=== PATIENT | male | born 1960 ===

== ENCOUNTER 2017-05-21 00:12 | Emergency (ER) | payer MEDICAID ==
[2017-05-21 00:29] VITALS: BMI 29.5
--- NOTE | 2017-05-21 03:05 | ED PDOC ---
HPI: Psych/Substance Abuse Time Seen by Provider: 05/21/17 00:25 Chief Complaint (Nursing): Alcohol Ingestion Chief Complaint (Provider): Alcohol Ingestion ED Caveat: Intoxicated History Per: Patient History/Exam Limitations: intoxication Current Symptoms Are (Timing): Still Present Suicide/Self Injury Attempted (Context): None Modifying Factor(s): Alcohol Additional Complaint(s): 56 year old male presents to ED due to alcohol intoxication and has a past history of alcohol abuse. Patient was found by EMS to be publicly intoxicated in the streets. Walks with an unsteady gait and is sleeping in his room upon provider entrance. PCP: Emiliano Stuart Past Medical History Reviewed: Historical Data, Nursing Documentation, Vital Signs Vital Signs: Last Vital Signs Temp 98.6 F 05/21/17 00:29 Pulse 85 05/21/17 00:29 Resp 16 05/21/17 00:29 BP 144/81 05/21/17 00:29 Pulse Ox 98 05/21/17 00:29 - Medical History PMH: Atrial Fibrillation, Hepatitis, HTN, Pancreatitis, Seizures (BRAIN INURY) Denies: Chronic Kidney Disease, Sexually Transmitted Disease - Surgical History Surgical History: No Surg Hx - Family History Family History: States: Unknown Family Hx - Social History Alcohol: > 2 Drinks/Day - Immunization History Hx Tetanus Toxoid Vaccination: No Hx Influenza Vaccination: No Hx Pneumococcal Vaccination: No - Home Medications Home Medications: Ambulatory Orders Medication Instructions Recorded levETIRAcetam [Keppra] 500 mg PO BID 04/10/16 Multimineral/Multivitamin 1 tab PO DAILY #30 tab 01/01/17 [Therapeutic-M Tab] Phenytoin, Extended [Dilantin 100 mg PO TID #90 cer 01/01/17 Kapseals] - Allergies Allergies/Adverse Reactions: Allergies Allergy/AdvReac Type Severity Reaction Status Date / Time No Known Allergies Allergy Verified 05/21/17 00:29 Review of Systems Review Of Systems: ROS cannot be obtained secondary to pt's inabilty to answer questions. (due to intoxicated state) Physical Exam - Reviewed Nursing Documentation Reviewed: Yes Vital Signs Reviewed: Yes - Physical Exam Appears: Positive for: Non-toxic Skin: Positive for: Normal Color, Warm, Dry Eye Exam: Positive for: Normal appearance Respiratory: Positive for: Normal Breath Sounds. Negative for: Respiratory Distress Gastrointestinal/Abdominal: Positive for: Soft. Negative for: Tenderness Neurologic/Psych: Negative for: Alert (sleeping), Oriented, Motor/Sensory Deficits - Laboratory Results Result Diagrams: 05/21/17 05:11 05/21/17 05:11 - ECG O2 Sat by Pulse Oximetry: 98 (RA) Pulse Ox Interpretation: Normal Medical Decision Making Medical Decision Makin Initial impression: alcohol intoxication Initial plan: * EtOH serum * Labs * UDrug screen * Accucheck 0347 Patient will undergo chemical sedation due to increased agitation and lack of cooperation with ED staff. 0700 Patient will be signed out to Dr. Frankel pending sobriety and crisis eval. Scribe Attestation: Documented by Monika Currie acting as a scribe for Sandoval Rob MD. Scribe Attestation: All medical record entries made by the Scribe were at my direction and personally dictated by me. I have reviewed the chart and agree that the record accurately reflects my personal performance of the history, physical exam, medical decision making, and the department course for this patient. I have also personally directed, reviewed, and agree with the discharge instructions and disposition. Disposition - Clinical Impression Clinical Impression: Alcohol abuse, Alcohol intoxication - Patient ED Disposition Is Patient to be Admitted: Transfer of Care - Disposition Disposition: Transfer of Care Disposition Time: 07:00 Condition: FAIR Patient Signed Over To: Daniella Frankel Handoff Comments: pending sobriety and crisis evaluation
[2017-05-21 05:14] LABS: BASO # 0.1 K/uL (0.0-0.2); BASO % 1.5 % (0.0-2.0); EOS # 0.1 K/uL (0.0-0.7); EOS % 2.5 % (0.0-4.0); HEMATOCRIT 38.9 % (35.0-51.0); LYMPH # 2.3 K/uL (1.0-4.3); LYMPH % 43.8 % (20.0-40.0); MEAN CELL VOLUME 96.2 fl (80.0-94.0); MEAN CORPUSCULAR HEMOGLOBIN 31.5 pg (27.0-31.0); MEAN CORPUSCULAR HGB CONC 32.7 g/dL (33.0-37.0); MEAN PLATELET VOLUME 7.3 fl (7.2-11.7); MONO # 0.3 K/uL (0.0-0.8); MONO % 4.8 % (0.0-10.0); NEUT # 2.5 K/uL (1.8-7.0); NEUT % 47.4 % (50.0-75.0); NRBC % 0.1 % (0.0-0.0); RED CELL DISTRIBUTION WIDTH 17.6 % (11.5-14.5); WHITE BLOOD COUNT 5.3 K/uL (4.8-10.8)
[2017-05-21 05:41] LABS: ALB/GLOB RATIO 1.1 (1.0-2.1); ALCOHOL SERUM 316 mg/dl (0-10); ALKALINE PHOSPHATASE 56 U/L (38-126); ALT/SGPT 44 U/L (21-72); AST/SGOT 36 U/L (17-59); BILIRUBIN,TOTAL 0.2 mg/dl (0.2-1.3); BLOOD UREA NITROGEN 7 mg/dl (9-20); CALCIUM 8.4 mg/dL (8.4-10.2); CARBON DIOXIDE 26 mmol/L (22-30); CHLORIDE 114 mmol/L (98-107); GFR AFRICAN-AMERICAN > 60; GLUCOSE,RANDOM 94 mg/dL (75-110); POTASSIUM 4.1 MMOL/L (3.6-5.0); SODIUM 151 mmol/l (132-148); TOTAL PROTEIN 7.1 G/DL (6.3-8.2)
--- NOTE | 2017-05-21 07:48 | ED PDOC ---
- Laboratory Results Result Diagrams: 05/21/17 05:11 05/21/17 05:11 - ECG O2 Sat by Pulse Oximetry: 99 Medical Decision Making Medical Decision Making: Time: 07:00 --Patient signed out to me by Dr. Rob pending sobriety and crisis evaluation Time: 10:37 Clinial Impression: Alcohol intoxication --Patient is AAO x3, has a steady gait, and requires no further treatment in the ED at this time. Counseling was provided and all questions were answered regarding diagnosis and need for followup with PMD. There is agreement to discharge plan. Return if symptoms persist or worsen. Scribe Attestation: Documented by Dallas Stanford acting as a scribe for Daniella Frankel MD. Scribe Attestation: All medical record entries made by the Scribe were at my direction and personally dictated by me. I have reviewed the chart and agree that the record accurately reflects my personal performance of the history, physical exam, medical decision making, and the department course for this patient. I have also personally directed, reviewed, and agree with the discharge instructions and disposition. Disposition - Clinical Impression Clinical Impression: Alcohol abuse, Alcohol intoxication - POA Present On Arrival: None - Disposition Referrals: Emiliano Stuart MD [Primary Care Provider] - Disposition: Routine/Home Disposition Time: 10:37 Condition: STABLE Instructions: Alcohol Intoxication (ED), Abuse of Alcohol (ED) Forms: [employer] ([place])
[2017-05-21 07:58] VITALS: RESP 17
[2017-05-21 10:54] VITALS: BP 126/78; PULSE 78; TEMP 96.7
[2017-05-24 04:10] VITALS: O2SAT 98
== END 2017-05-21 11:06 | disposition home or self-care (01) ==
LOC: H.ER 00:12
DX: F10.129 Alcohol abuse with intoxication, unspecified (principal); I10 Essential (primary) hypertension; I48.91 Unspecified atrial fibrillation; K85.90 Acute pancreatitis without necrosis or infection, unspecified
CPT/HCPCS: 80053; 80185; 80299; 80320; 80324; 80345; 80346; 80349; 80353; 80358; 80361; 82948; 83992; 85025; 96372; 96374; 99283; J1630; J2060

== ENCOUNTER 2017-06-02 13:53 | Inpatient (IN) | payer MEDICAID ==
[2017-06-02 13:53] VITALS: BMI 29.5
[2017-06-02] MEDS ORDERED: Thiamine 100 mg/ml Inj IM ONE (14:42)
[2017-06-02] MEDS ORDERED: Sodium Chloride 0.9% 1,000 ML IV STA (14:42)
--- NOTE | 2017-06-02 14:54 | ED PDOC ---
HPI: Seizure Time Seen by Provider: 06/02/17 14:25 Chief Complaint (Nursing): Chest Pain Chief Complaint (Provider): Seizure, Chest Pain History Per: Patient History/Exam Limitations: no limitations Recent Seizure Activity Began: Hours Ago: (this morning) Additional Complaint(s): Morris is a 56 y/o male with a history of alcoholism and AFib, who presents to the ED today complaining of seizures and chest pain. Patient states his last drink was yesterday morning, and he experienced a seizure this morning. He also complains of vague central chest pain. Patient has had multiple visits to [facility] for similar symptoms. His last full detox was 2 months ago. PMD: Tej Stuart Past Medical History Reviewed: Historical Data, Nursing Documentation, Vital Signs Vital Signs: Last Vital Signs Temp 98.7 F 06/05/17 12:00 Pulse 69 06/05/17 12:00 Resp 18 06/05/17 12:00 BP 130/81 06/05/17 12:00 Pulse Ox 97 06/05/17 12:00 - Medical History PMH: Atrial Fibrillation, Hepatitis, HTN, Pancreatitis, Schizophrenia, Seizures Denies: Chronic Kidney Disease, Sexually Transmitted Disease - Family History Family History: States: Unknown Family Hx - Immunization History Hx Tetanus Toxoid Vaccination: No Hx Influenza Vaccination: No Hx Pneumococcal Vaccination: No - Home Medications Home Medications: Ambulatory Orders Medication Instructions Recorded Citalopram Hydrobromide 40 mg PO DAILY 05/30/17 [Citalopram HBr] Lurasidone HCl [Latuda] 60 mg PO HS 05/30/17 chlordiazePOXIDE [Librium] 10 mg PO QID PRN 05/30/17 Enalapril Maleate [Vasotec] 2.5 mg PO DAILY #30 tab 06/05/17 levETIRAcetam [Keppra] 750 mg PO BID #60 tab 06/05/17 - Allergies Allergies/Adverse Reactions: Allergies Allergy/AdvReac Type Severity Reaction Status Date / Time No Known Allergies Allergy Verified 05/29/17 23:30 Review of Systems ROS Statement: Except As Marked, All Systems Reviewed And Found Negative Cardiovascular: Positive for: Chest Pain Gastrointestinal: Positive for: Nausea Neurological: Positive for: Seizures, Other (Tremulousness) Psych: Positive for: Anxiety Physical Exam - Reviewed Nursing Documentation Reviewed: Yes Vital Signs Reviewed: Yes - Physical Exam Appears: Positive for: Non-toxic, No Acute Distress Skin: Positive for: Normal Color, Warm, Dry Eye Exam: Positive for: EOMI, Normal appearance, PERRL ENT: Positive for: Normal ENT Inspection Neck: Positive for: Normal, Painless ROM, Supple Cardiovascular/Chest: Positive for: Regular Rate, Rhythm. Negative for: Murmur Respiratory: Positive for: Normal Breath Sounds. Negative for: Respiratory Distress Gastrointestinal/Abdominal: Positive for: Normal Exam, Bowel Sounds, Soft. Negative for: Tenderness Back: Positive for: Normal Inspection Extremity: Positive for: Normal ROM. Negative for: Pedal Edema, Deformity Neurologic/Psych: Positive for: Alert, Oriented, Other (Resting tremor). Negative for: Motor/Sensory Deficits Comments: alcohol on breath - Laboratory Results Result Diagrams: 06/03/17 06:30 06/03/17 06:30 - ECG ECG Rhythm: Positive for: Sinus Tachycardia, Nonspecific Changes (ST) Rate: 102 (bpm) O2 Sat by Pulse Oximetry: 99 (RA) Pulse Ox Interpretation: Normal Medical Decision Making Medical Decision Making: Time: 14:25 Initial Impression: alcohol withdrawal and chest pain Initial Plan: --EKG --Alcohol serum --B-type natriuretic peptide --CMP --Urine Drug screen --Troponin I --CBC --Chest XR --Ativan --Vitamin B --Urinalyisis Time: 15:00 --Patient signed out by me to Dr. Lakeisha Sepulveda pending labs and X-ray Scribe Attestation: Documented by Vaibhav Roberts, acting as a scribe for Martin Bynum III, MD Provider Scribe Attestation: All medical record entries made by the Scribe were at my direction and personally dictated by me. I have reviewed the chart and agree that the record accurately reflects my personal performance of the history, physical exam, medical decision making, and the department course for this patient. I have also personally directed, reviewed, and agree with the discharge instructions and disposition. Disposition - Clinical Impression Clinical Impression: Alcohol withdrawal seizure, Alcohol abuse - Patient ED Disposition Is Patient to be Admitted: Transfer of Care - Disposition Disposition: Transfer of Care Disposition Time: 15:00 Condition: FAIR Patient Signed Over To: Lakeisha Sepulveda
[2017-06-02] MEDS ORDERED: Thiamine 100 mg/ml Inj ONE (15:02)
[2017-06-02 15:20] LABS: BASO # 0.1 K/uL (0.0-0.2); BASO % 0.8 % (0.0-2.0); EOS % 0.1 % (0.0-4.0); LYMPH # 0.8 K/uL (1.0-4.3); LYMPH % 8.9 % (20.0-40.0); MEAN CORPUSCULAR HEMOGLOBIN 31.8 pg (27.0-31.0); MEAN CORPUSCULAR HGB CONC 34.6 g/dL (33.0-37.0); MEAN PLATELET VOLUME 7.9 fl (7.2-11.7); MONO # 0.6 K/uL (0.0-0.8); MONO % 6.9 % (0.0-10.0); NEUT # 7.1 K/uL (1.8-7.0); NEUT % 83.3 % (50.0-75.0); NRBC % 0.1 % (0.0-0.0); PLATELET COUNT 191 K/uL (130-400); RED CELL DISTRIBUTION WIDTH 17.3 % (11.5-14.5)
--- NOTE | 2017-06-02 15:35 | ED PDOC ---
- Laboratory Results Result Diagrams: 06/02/17 15:15 06/02/17 15:15 - ECG O2 Sat by Pulse Oximetry: 99 (RA) Pulse Ox Interpretation: Normal Medical Decision Making Medical Decision Making: Time: 15:00 --Patient transferred to nm be Dr. Martin Bynum III pending ER workup, reassessment, and final ER disposition. Time: 16:15 CHEST XR FINDINGS: LUNGS: Borderline infiltrate right base. Bronchovascular markings appear somewhat crowded at both bases. PLEURA: No significant pleural effusion identified. No pneumothorax apparent. CARDIOVASCULAR: Normal. OSSEOUS STRUCTURES: No significant abnormalities. VISUALIZED UPPER ABDOMEN: Normal. OTHER FINDINGS: None. IMPRESSION: Borderline infiltrate right base. Remaining lung kaye clear. Time: 16:40 --On reevaluation, patient still feels shaky and is tachycardic. Discussed chest xr; patient reports he's been coughing for the past 2 days with chills. He also admits he took dilantin but has not been taking it regularly --Patient will be hospitalized for alcohol withdrawal and seizure Orders: --Dilantin --Zithromax --Rocephin --Blood Culture Time: 17:38 --Dr. Trammell consulted about hospitalization Orders: --Cerebyx Scribe Attestation: Documented by Vaibhav Roberts, acting as a scribe for Lakeisha Sepulveda MD Provider Scribe Attestation: All medical record entries made by the Scribe were at my direction and personally dictated by me. I have reviewed the chart and agree that the record accurately reflects my personal performance of the history, physical exam, medical decision making, and the department course for this patient. I have also personally directed, reviewed, and agree with the discharge instructions and disposition. Disposition Discussed With : Mitesh Trammell Counseled Patient/Family Regarding: Studies Performed, Diagnosis, Need For Followup, Rx Given - Clinical Impression Clinical Impression: Alcohol withdrawal seizure, Alcohol abuse - POA Present On Arrival: Falls Or Trauma - Disposition Disposition: Admitted as In-Patient Disposition Time: 16:40 Condition: FAIR
[2017-06-02 15:37] LABS: ALB/GLOB RATIO 1.2 (1.0-2.1); ALCOHOL SERUM < 10 mg/dl (0-10); ALKALINE PHOSPHATASE 84 U/L (38-126); ALT/SGPT 51 U/L (21-72); AST/SGOT 59 U/L (17-59); BILIRUBIN,TOTAL 0.5 mg/dl (0.2-1.3); BLOOD UREA NITROGEN 5 mg/dl (9-20); CALCIUM 9.1 mg/dL (8.4-10.2); CARBON DIOXIDE 25 mmol/L (22-30); CHLORIDE 103 mmol/L (98-107); GFR AFRICAN-AMERICAN > 60; GLUCOSE,RANDOM 111 mg/dL (75-110); POTASSIUM 3.6 MMOL/L (3.6-5.0); SODIUM 141 mmol/l (132-148); TOTAL PROTEIN 8.2 G/DL (6.3-8.2); WHITE BLOOD COUNT 8.5 K/uL (4.8-10.8)
[2017-06-02 15:57] LABS: RBC URINE 1 /hpf (0-3); URINE BILIRUBIN NEGATIVE (NEGATIVE); URINE BLOOD NEGATIVE (NEGATIVE); URINE COLOR STRAW (YELLOW); URINE GLUCOSE (UA) NEG (Normal); URINE KETONE TRACE mg/dL (NEGATIVE); URINE LEUKOCYTE ESTERASE NEG Leu/uL (Negative); URINE PROTEIN NEGATIVE (NEGATIVE); URINE UROBILINOGEN 0.2-1.0 mg/dL (0.2-1.0)
--- NOTE | 2017-06-02 16:16 | RAD ---
HISTORY: chest pain COMPARISON: None available. TECHNIQUE: Chest PA and lateral FINDINGS: LUNGS: Borderline infiltrate right base. Bronchovascular markings appear somewhat crowded at both bases. PLEURA: No significant pleural effusion identified. No pneumothorax apparent. CARDIOVASCULAR: Normal. OSSEOUS STRUCTURES: No significant abnormalities. VISUALIZED UPPER ABDOMEN: Normal. OTHER FINDINGS: None. IMPRESSION: Borderline infiltrate right base. Remaining lung kaye clear.
[2017-06-02 16:26] LABS: NEUTROPHIL 83 % (42-75); TOTAL CELLS COUNTED 100
[2017-06-02] MEDS ORDERED: cefTRIAXone IV 1 gm in Dextros 50 ML IVPB STA (16:40)
[2017-06-02] MEDS ORDERED: Azithromycin 500 MG in Sodium Chloride 0.9% 250 ML IVPB STA (16:49)
[2017-06-02] MEDS ORDERED: cefTRIAXone IV 1 gm in Dextros 50 ML IVPB ONE (16:57)
[2017-06-03 07:40] LABS: HEMATOCRIT 39.2 % (35.0-51.0); MEAN CELL VOLUME 93.1 fl (80.0-94.0); MEAN CORPUSCULAR HEMOGLOBIN 31.5 pg (27.0-31.0); MEAN CORPUSCULAR HGB CONC 33.8 g/dL (33.0-37.0); RED CELL DISTRIBUTION WIDTH 17.2 % (11.5-14.5)
[2017-06-03 08:18] LABS: THYROID STIMULATING HORMONE 2.02 mIU/ML (0.46-4.68)
[2017-06-03 08:19] LABS: ALB/GLOB RATIO 1.1 (1.0-2.1); ALKALINE PHOSPHATASE 75 U/L (38-126); ALT/SGPT 37 U/L (21-72); AST/SGOT 48 U/L (17-59); BILIRUBIN,TOTAL 0.6 mg/dl (0.2-1.3); BLOOD UREA NITROGEN 5 mg/dl (9-20); CARBON DIOXIDE 28 mmol/L (22-30); CHLORIDE 102 mmol/L (98-107); CHOLESTEROL 206 mg/dL (0-199); GFR AFRICAN-AMERICAN > 60; GLUCOSE,RANDOM 84 mg/dL (75-110); POTASSIUM 3.3 MMOL/L (3.6-5.0); SODIUM 140 mmol/l (132-148); TOTAL PROTEIN 7.6 G/DL (6.3-8.2)
[2017-06-03] MEDS ORDERED: Potassium Chloride 20 mEq ER Tab PO ONE (09:55)
[2017-06-03] MEDS: cefTRIAXone IV 1 gm in Dextros 50 ML IVPB SCH (10:56)
[2017-06-03] MEDS: Azithromycin 500 MG in Sodium Chloride 0.9% 250 ML IVPB SCH (10:56)
--- NOTE | 2017-06-03 15:22 | CP.PCM.HP ---
History of Present Illness - History of Present Illness History of Present Illness: CC: Seizure/Chest pain. 56 y/o M, Hx of Alcoholism, Pancreatitis, Hepatitis, admitted to [facility] after been evaluated for Seizure episode while at home in AM, there after nausea associated but denied any trauma from seizure Worsening symptom: C/o of suddenly Midsternal CP in AM DOA, described as intermittent, dull, moderate intensity 4:10, non radiated, also Patient complaining of L shoulder pain and L C hest wall pain. Also Hx of Alcohol abuse, last drink day [employer]. Aggravated factor: Pt in non compliance with Seizure medications x 3 days [employer]. Pt denied: Fever, chills, v/d, abdominal pain. SOB, urinary symptoms, sick contact, recent travel out of [facility]. CXR shows: Borderline infiltrate R base. Present on Admission - Present on Admission Any Indicators Present on Admission: No Review of Systems - Constitutional Constitutional: Other (negative) - EENT Eyes: Other (negative) Ears: Other (negative) Nose/Mouth/Throat: Other (negative) - Cardiovascular Cardiovascular: Chest Pain (midsternal), Palpitations - Respiratory Respiratory: Other (negative) - Gastrointestinal Gastrointestinal: Nausea - Genitourinary Genitourinary: Other (negative) - Musculoskeletal Musculoskeletal: Arthralgias (L shoulder pain) - Integumentary Integumentary: Other (negative) - Neurological Neurological: Convulsions - Psychiatric Psychiatric: Anxiety - Endocrine Endocrine: Other (negative) - Hematologic/Lymphatic Hematologic: Other (negative) Past Patient History - Infectious Disease Hx of Infectious Diseases: None - Past Medical History & Family History Past Medical History?: Yes Pertinent Family History: Unknown - Past Social History Smoking Status: Never Smoked Alcohol: Other (alcohol abuse) Drugs: Denies Home Situation {Lives}: Alone - CARDIAC Hx Cardiac Disorders: Yes Hx Atrial Fibrillation: Yes Hx Hypertension: Yes - PULMONARY Hx Respiratory Disorders: No Hx Tuberculosis: No - NEUROLOGICAL Hx Neurological Disorder: Yes Hx Seizures: Yes - HEENT Hx HEENT Problems: No - RENAL Hx Chronic Kidney Disease: No - ENDOCRINE/METABOLIC Hx Endocrine Disorders: No - HEMATOLOGICAL/ONCOLOGICAL Hx Blood Disorders: Yes Hx AIDS: No Hx Human Immunodeficiency Virus (HIV): No - INTEGUMENTARY Hx Dermatological Problems: No - MUSCULOSKELETAL/RHEUMATOLOGICAL Hx Musculoskeletal Disorders: Yes Hx Back Pain: Yes Hx Falls: Yes - GASTROINTESTINAL Hx Gastrointestinal Disorders: Yes Hx Pancreatitis: Yes - GENITOURINARY/GYNECOLOGICAL Hx Genitourinary Disorders: No Hx Sexually Transmitted Disorders: No - PSYCHIATRIC Hx Psychophysiologic Disorder: Yes Hx Schizophrenia: Yes Hx Substance Use: No - SURGICAL HISTORY Hx Surgeries: Yes Other/Comment: head surgery from head trauma 2 yrs. ago - ANESTHESIA Hx Anesthesia: Yes Hx Anesthesia Reactions: No Hx Malignant Hyperthermia: No Meds Allergies/Adverse Reactions: Allergies Allergy/AdvReac Type Severity Reaction Status Date / Time No Known Allergies Allergy Verified 05/29/17 23:30 Physical Exam - Constitutional Appears: No Acute Distress - Head Exam Head Exam: NORMAL INSPECTION - Eye Exam Eye Exam: PERRL - ENT Exam ENT Exam: Normal Exam - Neck Exam Neck exam: Positive for: Normal Inspection - Respiratory Exam Respiratory Exam: NORMAL BREATHING PATTERN - Cardiovascular Exam Cardiovascular Exam: REGULAR RHYTHM Additional comments: L Chest wall tenderness - GI/Abdominal Exam GI & Abdominal Exam: Normal Bowel Sounds, Soft - Extremities Exam Additional comments: L shoulder tenderness - Back Exam Back exam: NORMAL INSPECTION - Neurological Exam Neurological exam: Alert, Oriented x3 Additional comments: No motor sensory deficit. - Psychiatric Exam Psychiatric exam: Agitated - Skin Skin Exam: Warm Results - Vital Signs Recent Vital Signs: Last Vital Signs Temp 99.2 F 06/03/17 12:00 Pulse 85 06/03/17 12:00 Resp 18 06/03/17 12:00 BP 145/83 06/03/17 12:00 Pulse Ox 98 06/03/17 12:00 reviewed J.Shayy - Labs Result Diagrams: 06/03/17 06:30 06/03/17 06:30 Labs: Laboratory Results - last 24 hr 06/02/17 06/02/17 06/02/17 15:15 15:15 15:15 WBC 8.5 D RBC 4.13 L Hgb 13.1 Hct 38.0 MCV 92.0 D MCH 31.8 H MCHC 34.6 RDW 17.3 H Plt Count 191 D MPV 7.9 Neut % (Auto) 83.3 H Lymph % (Auto) 8.9 L [place] % (Auto) 6.9 Eos % (Auto) 0.1 Baso % (Auto) 0.8 Neut # 7.1 H Lymph # 0.8 L [place] # 0.6 Eos # 0.0 Baso # 0.1 Neutrophils % (Manual) 83 H Band Neutrophils % 1 Lymphocytes % (Manual) 11 L Monocytes % (Manual) 5 Platelet Estimate Normal Anisocytosis (manual) Slight Sodium 141 Potassium 3.6 Chloride 103 Carbon Dioxide 25 Anion Gap 17 BUN 5 L Creatinine 0.6 L Est GFR ( Amer) > 60 Est GFR (Non-Af Amer) > 60 Random Glucose 111 H Calcium 9.1 Total Bilirubin 0.5 AST 59 ALT 51 Alkaline Phosphatase 84 Troponin I < 0.0120 NT-Pro-B Natriuret Pep 88.1 Total Protein 8.2 Albumin 4.4 Globulin 3.8 Albumin/Globulin Ratio 1.2 Triglycerides Cholesterol LDL Cholesterol Direct HDL Cholesterol Thyroxine (T4) TSH 3rd Generation Urine Color Urine Clarity Urine pH Ur Specific Quail Urine Protein Urine Glucose (UA) Urine Ketones Urine Blood Urine Nitrate Urine Bilirubin Urine Urobilinogen Ur Leukocyte Esterase Urine RBC (Auto) Urine Opiates Screen Negative Urine Methadone Screen Negative Ur Barbiturates Screen Negative Phenytoin Ur Phencyclidine Scrn Negative Ur Amphetamines Screen Negative U Benzodiazepines Scrn Positive U Oth Cocaine Metabols Negative U Cannabinoids Screen Negative Alcohol, Quantitative < 10 06/02/17 06/02/17 06/03/17 15:15 16:56 06:30 WBC 8.0 RBC 4.21 L Hgb 13.3 Hct 39.2 MCV 93.1 MCH 31.5 H MCHC 33.8 RDW 17.2 H Plt Count 191 MPV Neut % (Auto) Lymph % (Auto) [place] % (Auto) Eos % (Auto) Baso % (Auto) Neut # Lymph # [place] # Eos # Baso # Neutrophils % (Manual) Band Neutrophils % Lymphocytes % (Manual) Monocytes % (Manual) Platelet Estimate Anisocytosis (manual) Sodium Potassium Chloride Carbon Dioxide Anion Gap BUN Creatinine Est GFR ( Amer) Est GFR (Non-Af Amer) Random Glucose Calcium Total Bilirubin AST ALT Alkaline Phosphatase Troponin I NT-Pro-B Natriuret Pep Total Protein Albumin Globulin Albumin/Globulin Ratio Triglycerides Cholesterol LDL Cholesterol Direct HDL Cholesterol Thyroxine (T4) TSH 3rd Generation Urine Color Straw Urine Clarity Clear Urine pH 7.0 Ur Specific [place] 1.010 Urine Protein Negative Urine Glucose (UA) Neg Urine Ketones Trace Urine Blood Negative Urine Nitrate Negative Urine Bilirubin Negative Urine Urobilinogen 0.2-1.0 Ur Leukocyte Esterase Neg Urine RBC (Auto) 1 Urine Opiates Screen Urine Methadone Screen Ur Barbiturates Screen Phenytoin 5.7 L Ur Phencyclidine Scrn Ur Amphetamines Screen U Benzodiazepines Scrn U Oth Cocaine Metabols U Cannabinoids Screen Alcohol, Quantitative 06/03/17 06:30 WBC RBC Hgb Hct MCV MCH MCHC RDW Plt Count MPV Neut % (Auto) Lymph % (Auto) [place] % (Auto) Eos % (Auto) Baso % (Auto) Neut # Lymph # [place] # Eos # Baso # Neutrophils % (Manual) Band Neutrophils % Lymphocytes % (Manual) Monocytes % (Manual) Platelet Estimate Anisocytosis (manual) Sodium 140 Potassium 3.3 L Chloride 102 Carbon Dioxide 28 Anion Gap 13 BUN 5 L Creatinine 0.6 L Est GFR ( Amer) > 60 Est GFR (Non-Af Amer) > 60 Random Glucose 84 Calcium 9.0 Total Bilirubin 0.6 AST 48 ALT 37 Alkaline Phosphatase 75 Troponin I NT-Pro-B Natriuret Pep Total Protein 7.6 Albumin 4.0 Globulin 3.6 Albumin/Globulin Ratio 1.1 Triglycerides 66 Cholesterol 206 H LDL Cholesterol Direct 51 HDL Cholesterol 147 H Thyroxine (T4) 5.90 TSH 3rd Generation 2.02 Urine Color Urine Clarity Urine pH Ur Specific [place] Urine Protein Urine Glucose (UA) Urine Ketones Urine Blood Urine Nitrate Urine Bilirubin Urine Urobilinogen Ur Leukocyte Esterase Urine RBC (Auto) Urine Opiates Screen Urine Methadone Screen Ur Barbiturates Screen Phenytoin Ur Phencyclidine Scrn Ur Amphetamines Screen U Benzodiazepines Scrn U Oth Cocaine Metabols U Cannabinoids Screen Alcohol, Quantitative reviewed J.P. - Imaging and Cardiology Chest x-ray Status: Report reviewed by me (J.P.) Assessment & Plan (1) Seizure disorder Status: Acute Priority: High (2) Alcohol abuse Status: Chronic Priority: High (3) Chest pain, mid sternal Status: Acute Priority: High - Assessment and Plan (Free Text) Plan: F/U EKG, Blood C-S, Ceftriaxone, Zithromax, Celexa, Ativan and rest of Tx, Neuro and Cardiac consult. - Date & Time Date: 06/03/17 Time: 14:30
--- NOTE | 2017-06-03 16:00 | CP.PCM.CON ---
History of Present Illness - History of Present Illness History of Present Illness: CONSULT DICTATED REC SEIZURES SUB THERAPEUTIC AED AND NON COMPLIANCE KEEP ONE AED AND THERAPEUTIC RANGE NO FURTHER WORKK UP IS NEEDED NOW CARDIAC WORK FOR CP AND PALPITATION Past Patient History - Infectious Disease Hx of Infectious Diseases: None - Past Medical History & Family History Past Medical History?: Yes - Past Social History Smoking Status: Never Smoked - CARDIAC Hx Cardiac Disorders: Yes Hx Atrial Fibrillation: Yes Hx Hypertension: Yes - PULMONARY Hx Respiratory Disorders: No Hx Tuberculosis: No - NEUROLOGICAL Hx Neurological Disorder: Yes Hx Seizures: Yes - HEENT Hx HEENT Problems: No - RENAL Hx Chronic Kidney Disease: No - ENDOCRINE/METABOLIC Hx Endocrine Disorders: No - HEMATOLOGICAL/ONCOLOGICAL Hx Blood Disorders: Yes Hx AIDS: No Hx Human Immunodeficiency Virus (HIV): No - INTEGUMENTARY Hx Dermatological Problems: No - MUSCULOSKELETAL/RHEUMATOLOGICAL Hx Musculoskeletal Disorders: Yes Hx Back Pain: Yes Hx Falls: Yes - GASTROINTESTINAL Hx Gastrointestinal Disorders: Yes Hx Pancreatitis: Yes - GENITOURINARY/GYNECOLOGICAL Hx Genitourinary Disorders: No Hx Sexually Transmitted Disorders: No - PSYCHIATRIC Hx Psychophysiologic Disorder: Yes Hx Schizophrenia: Yes Hx Substance Use: No - SURGICAL HISTORY Hx Surgeries: Yes Other/Comment: head surgery from head trauma 2 yrs. ago - ANESTHESIA Hx Anesthesia: Yes Hx Anesthesia Reactions: No Hx Malignant Hyperthermia: No Meds Allergies/Adverse Reactions: Allergies Allergy/AdvReac Type Severity Reaction Status Date / Time No Known Allergies Allergy Verified 05/29/17 23:30 - Medications Medications: Current Medications Chlordiazepoxide (Librium) 10 mg PO QID PRN PRN Reason: WITHDRAWAL SYMPTOMS Citalopram Hydrobromide (Celexa) 20 mg PO DAILY [facility] Last Admin: 06/03/17 10:03 Dose: 20 mg Home Med (Lurasidone Hcl [Latuda]) 60 mg PO HS [facility] Ceftriaxone Sodium (Rocephin Iv 1 Gm Duplex) 50 mls @ 100 mls/hr IVPB DAILY [facility] PRN Reason: Protocol Last Admin: 06/03/17 10:56 Dose: 100 mls/hr Azithromycin 500 mg/ Sodium (Chloride) 250 mls @ 250 mls/hr IVPB DAILY [facility] PRN Reason: Protocol Last Admin: 06/03/17 10:56 Dose: 250 mls/hr Levetiracetam (Keppra) 750 mg PO BID [facility] Last Admin: 06/03/17 10:03 Dose: 750 mg Lorazepam (Ativan) 1 mg IVP ONCE PRN PRN Reason: Agitation Last Admin: 06/03/17 01:19 Dose: 1 mg Results - Vital Signs Recent Vital Signs: Last Vital Signs Temp 99.1 F 06/03/17 15:40 Pulse 74 06/03/17 15:40 Resp 20 06/03/17 15:40 BP 138/77 06/03/17 15:40 Pulse Ox 96 06/03/17 15:40 - Labs Result Diagrams: 06/03/17 06:30 06/03/17 06:30 Labs: Laboratory Results - last 24 hr 06/02/17 06/02/17 06/02/17 15:15 15:15 16:56 WBC RBC Hgb Hct MCV MCH MCHC RDW Plt Count Neutrophils % (Manual) 83 H Band Neutrophils % 1 Lymphocytes % (Manual) 11 L Monocytes % (Manual) 5 Platelet Estimate Normal Anisocytosis (manual) Slight Sodium Potassium Chloride Carbon Dioxide Anion Gap BUN Creatinine Est GFR ( Amer) Est GFR (Non-Af Amer) Random Glucose Calcium Total Bilirubin AST ALT Alkaline Phosphatase Total Protein Albumin Globulin Albumin/Globulin Ratio Triglycerides Cholesterol LDL Cholesterol Direct HDL Cholesterol Thyroxine (T4) TSH 3rd Generation Urine Color Straw Urine Clarity Clear Urine pH 7.0 Ur Specific Maria Stein 1.010 Urine Protein Negative Urine Glucose (UA) Neg Urine Ketones Trace Urine Blood Negative Urine Nitrate Negative Urine Bilirubin Negative Urine Urobilinogen 0.2-1.0 Ur Leukocyte Esterase Neg Urine RBC (Auto) 1 Phenytoin 5.7 L 06/03/17 06/03/17 06:30 06:30 WBC 8.0 RBC 4.21 L Hgb 13.3 Hct 39.2 MCV 93.1 MCH 31.5 H MCHC 33.8 RDW 17.2 H Plt Count 191 Neutrophils % (Manual) Band Neutrophils % Lymphocytes % (Manual) Monocytes % (Manual) Platelet Estimate Anisocytosis (manual) Sodium 140 Potassium 3.3 L Chloride 102 Carbon Dioxide 28 Anion Gap 13 BUN 5 L Creatinine 0.6 L Est GFR ( Amer) > 60 Est GFR (Non-Af Amer) > 60 Random Glucose 84 Calcium 9.0 Total Bilirubin 0.6 AST 48 ALT 37 Alkaline Phosphatase 75 Total Protein 7.6 Albumin 4.0 Globulin 3.6 Albumin/Globulin Ratio 1.1 Triglycerides 66 Cholesterol 206 H LDL Cholesterol Direct 51 HDL Cholesterol 147 H Thyroxine (T4) 5.90 TSH 3rd Generation 2.02 Urine Color Urine Clarity Urine pH Ur Specific Maria Stein Urine Protein Urine Glucose (UA) Urine Ketones Urine Blood Urine Nitrate Urine Bilirubin Urine Urobilinogen Ur Leukocyte Esterase Urine RBC (Auto) Phenytoin
--- NOTE | 2017-06-03 17:38 | CARD ---
APPROVED REPORT EKG Measurement Heart [id number] <Conclusion> Sinus tachycardia Nonspecific T wave abnormality Abnormal ECG
[2017-06-03] MEDS ORDERED: LURASIDONE HCL 60 MG PO SCH (22:00)
--- NOTE | 2017-06-04 08:27 | CON ---
DATE: UNIT NUMBER: [id number] REASON FOR CONSULTATION: Seizures. CHIEF COMPLAINT: The patient was brought in to [facility] with history of chest pain, palpitation and left arm pain. Prior to these symptoms, patient did have seizures. From neurological point of view, I was called in to evaluate him to for further management. HISTORY OF PRESENT ILLNESS: Mr. Morris Price is a 56-year-old right-handed male presenting with seizure secondary to his alcohol use and stopped taking medication for his seizures due to the sudden takeoff of his girlfriend from him. This seizure has been happening for the last 2 years. History of head trauma in 2014, ever since he admitted he has been having seizures. PAST MEDICAL HISTORY: Atrial fibrillation, hepatitis, hypertension, pancreatitis, schizophrenia, seizures. ALLERGIES: NO KNOWN ALLERGIES. REVIEW OF SYSTEMS: Twelve-point system being reviewed. From neuro, seizures. MEDICATIONS: Lorazepam, azithromycin, Celexa, Keppra, Librium and Rocephin. PHYSICAL EXAMINATION VITAL SIGNS: Blood pressure 138/77, mean arterial pressure of 97, respiratory rate is 18, temperature afebrile. NECK: Supple. HEART: Systolic murmur noted. CHEST: Fair entry. EXTREMITIES: No edema in the legs. NEUROLOGIC: Mental status examination: He is awake, alert, oriented to person, place and time. Speech is clear. Naming, repetition, fluency, comprehension, all within normal. No sign of homicidal ideation. No sign of suicidal ideation. No sign of confabulation. Cranial nerve examination: Visual field intact. Pupils are reactive to light. Extraocular movement normal. No nystagmus. No facial sensory deficit. No facial asymmetry. Hearing is normal. Tongue is midline. Good gag. Motor examination: On outstretched hand with eyes closed, no drift noted. Power is symmetric on either side. Deep tendon reflexes: Biceps, brachioradialis, triceps, are trace. Both the knees are absent. Both ankles are equal to response. Sensory examination: Grossly intact. Gait is unsteady. WORKUP: CT of the head, no new ischemic process or bleed. BLOOD WORKUP: WBC 8.1, hemoglobin 13.3, hematocrit 39.2, platelets 191. Sodium 140, potassium 3.3, chloride 102, bicarbonate 28, BUN 5, creatinine 0.6, GFR more than 60. Urinalysis shows positive for benzos and alcohol level was less than 10. CONCLUSION: Mr. Morris Price has been presenting with history of seizure disorder secondary to his old head trauma, as per patient, and alcohol abuse. The patient has been having 2 drugs, both were subtherapeutic range. At this point, I would like to cut off the toxic drug, which is found to be subtherapeutic level. I would like to continue Keppra, the dose will be increased to 150 mg two times a day. No further workup. The patient should be evaluated by the identification technician. The patient should follow up with psychiatrist as well. The patient does not need 2 anti-epileptic drugs. I would like him to continue Keppra 750 mg twice a day, and if medically stable, the patient can be discharged and should follow up with me as outpatient. Riaz Olvera MD
[2017-06-04] MEDS: cefTRIAXone IV 1 gm in Dextros 50 ML IVPB SCH (09:06)
--- NOTE | 2017-06-04 09:58 | CP.PCM.CON ---
History of Present Illness - History of Present Illness History of Present Illness: this 56-year-old man came to the emergency room following a seizure at home. The patient also complained of left pectoral ache which is aggravated by lying down and relieved to some extent by sitting up. He also admits to slight tenderness in this area. He gives history of having been hospitalized with atrial fibrillation at another institution. He has a long history of chronic alcohol use and has been on antiseizure medications following a fall during which she sustained head trauma. The patient has had seizures ever since. He has been taking his medications erratically and also drinking heavily. He has schizophrenia as well. He claims that he has quit smoking 3 months back. There is no prior history of myocardial infarction or diabetes or congestive cardiac failure. Physical examination shows a middle aged man who is slightly dull in responding to simple questions. He appears awake and otherwise coherent and aware of his surroundings. He was afebrile with a pulse rate of 68 bpm regular and a blood pressure of 136/74 mmHg. His jugular venous pressure was not elevated and there was no edema hour his lower extremities. The pedal pulses were well felt. There were no carotid bruits. His extremities were warm and in nailbeds were pink. There was no cyanosis or clubbing. His chest was clear and his heart sounds where distend but by mouth. There was no gallop there were no murmurs.his abdomen was soft and there was no organomegaly. His electric cardiogram showed sinus rhythm with nonspecific ST changes no Q waves were detected on the electric cardiogram. His lab data showed that the initial troponin level on arrival in the hospital was normal. An additional troponin level has been requested now. His BUN/creatinine where 5 and 0.6 mg percent respectively his potassium today was 3.3 mg/L and additional replacement has been ordered. His AST and ALTs were normal so was his alkaline phosphatase. His serum bilirubin level was normal TSH was normal his LDL cholesterol was 51 mg percent. Impression: atypical chest pain ( doubt acute coronary syndrome) unsubstantiated history of atrial fibrillation. Seizure disorder chronic alcohol use noncompliance with medications and recurrent seizures. An additional troponin assessment has been requested. If this level also is within normal range it rules out myocardial ischemia and the patient may be allowed to return home when okayed by neurologist. The patient sees a primary care physician as an outpatient on a regular basis according to him. Past Patient History - Infectious Disease Hx of Infectious Diseases: None - Past Medical History & Family History Past Medical History?: Yes - Past Social History Smoking Status: Never Smoked Alcohol: Other (alcohol abuse) Drugs: Denies Home Situation {Lives}: Alone - CARDIAC Hx Cardiac Disorders: Yes Hx Atrial Fibrillation: Yes Hx Hypertension: Yes - PULMONARY Hx Respiratory Disorders: No Hx Tuberculosis: No - NEUROLOGICAL Hx Neurological Disorder: Yes Hx Seizures: Yes - HEENT Hx HEENT Problems: No - RENAL Hx Chronic Kidney Disease: No - ENDOCRINE/METABOLIC Hx Endocrine Disorders: No - HEMATOLOGICAL/ONCOLOGICAL Hx Blood Disorders: Yes Hx AIDS: No Hx Human Immunodeficiency Virus (HIV): No - INTEGUMENTARY Hx Dermatological Problems: No - MUSCULOSKELETAL/RHEUMATOLOGICAL Hx Musculoskeletal Disorders: Yes Hx Back Pain: Yes Hx Falls: Yes - GASTROINTESTINAL Hx Gastrointestinal Disorders: Yes Hx Pancreatitis: Yes - GENITOURINARY/GYNECOLOGICAL Hx Genitourinary Disorders: No Hx Sexually Transmitted Disorders: No - PSYCHIATRIC Hx Psychophysiologic Disorder: Yes Hx Schizophrenia: Yes Hx Substance Use: No - SURGICAL HISTORY Hx Surgeries: Yes Other/Comment: head surgery from head trauma 2 yrs. ago - ANESTHESIA Hx Anesthesia: Yes Hx Anesthesia Reactions: No Hx Malignant Hyperthermia: No Meds Allergies/Adverse Reactions: Allergies Allergy/AdvReac Type Severity Reaction Status Date / Time No Known Allergies Allergy Verified 05/29/17 23:30 - Medications Medications: Current Medications Chlordiazepoxide (Librium) 10 mg PO QID PRN PRN Reason: WITHDRAWAL SYMPTOMS Citalopram Hydrobromide (Celexa) 20 mg PO DAILY [facility] Last Admin: 06/04/17 09:06 Dose: 20 mg Home Med (Lurasidone Hcl [Latuda]) 60 mg PO HS [facility] Ceftriaxone Sodium (Rocephin Iv 1 Gm Duplex) 50 mls @ 100 mls/hr IVPB DAILY [facility] PRN Reason: Protocol Last Admin: 06/04/17 09:06 Dose: 100 mls/hr Azithromycin 500 mg/ Sodium (Chloride) 250 mls @ 250 mls/hr IVPB DAILY [facility] PRN Reason: Protocol Last Admin: 06/03/17 10:56 Dose: 250 mls/hr Levetiracetam (Keppra) 750 mg PO BID [facility] Last Admin: 06/04/17 09:06 Dose: 750 mg Lorazepam (Ativan) 1 mg IVP ONCE PRN PRN Reason: Agitation Last Admin: 06/03/17 01:19 Dose: 1 mg Results - Vital Signs Recent Vital Signs: Last Vital Signs Temp 98.3 F 06/04/17 07:57 Pulse 79 06/04/17 07:57 Resp 18 06/04/17 07:57 BP 135/83 06/04/17 07:57 Pulse Ox 95 06/04/17 07:57 - Labs Result Diagrams: 06/03/17 06:30 06/03/17 06:30
[2017-06-04] MEDS: Azithromycin 500 MG in Sodium Chloride 0.9% 250 ML IVPB SCH (10:35)
--- NOTE | 2017-06-04 13:54 | CP.PCM.PN ---
Subjective - Date & Time of Evaluation Date of Evaluation: 06/04/17 Time of Evaluation: 12:55 - Subjective Subjective: F/U Seizure/CP No cough, no SOB, no CP. Objective - Vital Signs/Intake and Output Vital Signs (last 24 hours): Temp Pulse Resp BP Pulse Ox 98.1 F 67 18 153/86 H 96 06/04/17 12:00 06/04/17 12:00 06/04/17 12:00 06/04/17 12:00 06/04/17 12:00 - Medications Medications: Current Medications Chlordiazepoxide (Librium) 10 mg PO QID PRN PRN Reason: WITHDRAWAL SYMPTOMS Citalopram Hydrobromide (Celexa) 20 mg PO DAILY [facility] Last Admin: 06/04/17 09:06 Dose: 20 mg Ceftriaxone Sodium (Rocephin Iv 1 Gm Duplex) 50 mls @ 100 mls/hr IVPB DAILY [facility] PRN Reason: Protocol Last Admin: 06/04/17 09:06 Dose: 100 mls/hr Azithromycin 500 mg/ Sodium (Chloride) 250 mls @ 250 mls/hr IVPB DAILY [facility] PRN Reason: Protocol Last Admin: 06/04/17 10:35 Dose: 250 mls/hr Levetiracetam (Keppra) 750 mg PO BID [facility] Last Admin: 06/04/17 09:06 Dose: 750 mg Lorazepam (Ativan) 1 mg IVP ONCE PRN PRN Reason: Agitation Last Admin: 06/03/17 01:19 Dose: 1 mg - Labs Labs: 06/03/17 06:30 06/03/17 06:30 - Constitutional Appears: No Acute Distress - Head Exam Head Exam: NORMAL INSPECTION - Eye Exam Eye Exam: PERRL - ENT Exam ENT Exam: Normal Exam - Neck Exam Neck Exam: Normal Inspection - Respiratory Exam Respiratory Exam: NORMAL BREATHING PATTERN - Cardiovascular Exam Cardiovascular Exam: REGULAR RHYTHM Additional comments: L chest wall tenderness. - GI/Abdominal Exam GI & Abdominal Exam: Soft, Normal Bowel Sounds - Extremities Exam Extremities Exam: Tenderness (L shoulder) - Back Exam Back Exam: NORMAL INSPECTION - Neurological Exam Neurological Exam: Alert, Oriented x3. absent: Motor Sensory Deficit - Psychiatric Exam Additional comments: Calm now. - Skin Skin Exam: Warm Assessment and Plan (1) Seizure disorder Status: Acute (2) Alcohol abuse Status: Chronic (3) Chest pain, mid sternal Status: Acute - Assessment and Plan (Free Text) Plan: F/U CT Chest, Cardiology and Neurology consult appreciated. Keppra dose increased by Neurology, continue rest of Tx.
--- NOTE | 2017-06-04 15:14 | CT ---
PROCEDURE: CT Chest without contrast HISTORY: pneumonia COMPARISON: June 04, 2017. Two-view chest TECHNIQUE: Contiguous axial images were obtained through the chest without intravenous contrast enhancement. Sagittal and coronal reconstructions were performed. Radiation dose (DLP): 577.59 mGy-cm. This CT exam was performed using one or more of the following dose reduction techniques: Automated exposure control, adjustment of the mA and/or kV according to patient size, and/or use of iterative reconstruction technique. FINDINGS: LUNGS: Clear lungs. Visualized airway clear. MEDIASTINUM: Unremarkable thoracic aorta. No aneurysm. Normal sized heart. Main pulmonary artery unremarkable. No vascular congestion. No lymphadenopathy. PLEURA: No pleural fluid. No pneumothorax. BONES: No fracture. No destructive lesion. UPPER ABDOMEN: Perinephric stranding bilaterally right less than left. There is suggestion of subcapsular mass or fluid collection left kidney. Follow-up recommendation: Ultrasound advised for further assessment of both kidneys. OTHER FINDINGS: None. IMPRESSION: Unremarkable non-contrast enhanced CT of the chest. Specifically, no evidence of infiltrate, nodule, pulmonary mass. Follow-up recommended, ultrasound advised for findings incompletely seen in the upper abdomen with respect to both kidneys.
--- NOTE | 2017-06-04 18:31 | CARD ---
APPROVED REPORT EXAM: Two-dimensional and M-mode echocardiogram with Doppler and color Doppler. Other Information Quality : GoodRhythm : NSR INDICATION Chest Pain 2D DIMENSIONS IVSd0.76 (0.7-1.1cm)LVDd5.04 (3.9-5.9cm) LVOT Diameter2.06 (1.8-2.4cm)PWd0.91 (0.7-1.1cm) IVSs1.20 (0.8-1.2cm)LVDs3.73 (2.5-4.0cm) FS (%) 26.0 %PWs1.31 (0.8-1.2cm) M-Mode DIMENSIONS Left Atrium (MM)2.24 (2.5-4.0cm)IVSd0.88 (0.7-1.1cm) Aortic Root3.56 (2.2-3.7cm)LVDd6.38 (4.0-5.6cm) Aortic Cusp Exc.2.21 (1.5-2.0cm)PWd0.82 (0.7-1.1cm) IVSs1.88 cmFS (%) 35 % LVDs4.15 (2.0-3.8cm)PWs1.53 cm Mitral Valve E/A ratio0.0 TDI Lateral E' Peak V6.27cm/sMedial E' Peak V5.62cm/sE/Lateral E'0.0 E/Medial E'0.0 LEFT VENTRICLE The left ventricle is normal size. There is normal left ventricular wall thickness. Left ventricle systolic function is moderately to severely impaired. The LVEF is estimated at 35- 40% The anterior wall and anterior septum are hypokinestic. This is a suggestion of a paradoxical septal motion. Transmitral Doppler flow pattern is Grade IV-fixed restrictive diastolic dysfunction. No left ventricle thrombus noted on this study. There is no ventricular septal defect visualized. There is no left ventricular aneurysm. There is no mass noted in the left ventricle. RIGHT VENTRICLE The right ventricle is normal size. There is normal right ventricular wall thickness. The right ventricular systolic function is normal. ATRIA The left atrium size is normal. The right atrium size is normal. The interatrial septum is intact with no evidence for an atrial septal defect. AORTIC VALVE The aortic valve is normal in structure. No aortic regurgitation is present. There is no aortic valvular stenosis. There is no aortic valvular vegetation. MITRAL VALVE The mitral valve is normal in structure. There is no evidence of mitral valve prolapse. There is no mitral valve stenosis. There is no mitral valve regurgitation noted. TRICUSPID VALVE The tricuspid valve is normal in structure. There is moderate tricuspid regurgitation. No PAP recorded There is no tricuspid valve prolapse or vegetation. There is no tricuspid valve stenosis. PULMONIC VALVE The pulmonary valve is normal in structure. There is no pulmonic valvular regurgitation. There is no pulmonic valvular stenosis. GREAT VESSELS The aortic root is normal in size. The ascending aorta is normal in size. The IVC is normal in size and collapses >50% with inspiration. PERICARDIAL EFFUSION The pericardium appears normal. There is no pleural effusion. <Conclusion> Moderate to Severe LV systolic dysfunction LAD regional wall motion abnormality
[2017-06-05 00:40] VITALS: RESP 18
[2017-06-05] MEDS: cefTRIAXone IV 1 gm in Dextros 50 ML IVPB SCH (09:14)
--- NOTE | 2017-06-05 10:12 | PQF GENQUE ---
Dr. Trammell, Please specify type of pneumonia or suspected type of Pneumonia in the progress notes: versus Pneumonia ruled out? Aspiration pneumonia Please document specific aspirate (food, liquids, etc.) Bacterial (specify organism) Bronchopneumonia (specify organism) Interstitual pneumonia Organizing pneumonia/BOOP Pneumonia with influenza, jannet flu, or H1N1 flu RSV pneumonia Tuberculosis, pulmonary Viral pneumonia Other pneumonia (specify organism or type) Clinically unable to determine Unknown Note: Probable and suspected conditions can be coded as if they exist if still documented at the time of discharge. 2. Please specify the organism causing the pneumonia: if known after the work up is completed Note: CAP, HAP, and HCAP indicate where the pneumonia was acquired, not a specific type. Admission order: Admitting Diagnosis: Pneumonia, Alcohol Withdrawal H and P: Hx of Alcoholism, Pancreatitis, Hepatitis, ----evalaluated for Seizure episode while at home in AM, there after nausea associated but denied any trauma from seizure --Worsening symptom: C/o of suddenly Midsternal CP in AM DOA, L shoulder pain and L C hest wall pain. Also Hx of Alcohol abuse, last drink day [employer]. non compliance with Seizure medications x 3 days [employer]. Assessment : (1) Seizure disorder Status: Acute (2) Alcohol abuse Status: Chronic (3) Chest pain, mid sternal Status: Acute CXR: Impression: Borderline infiltrate right base. Remaining lung kaye clear. CT Chest: Imp: Unremarkable non-contrast enhanced CT of the chest. Specifically , no evidence of infiltrate, nodule, pulmonary mass Ceftriaxone IVPB daily Blood culture prelim: no growth after 48 hrs. This form is a permanent part of the medical record Clarification of your documentation is requested to better reflect the severity of illness and intensity of treatment of your patient. Indicators present [] Specify: [] [] Specify: [] [] Specify: [] [] Specify: [] Location in the medical record that reflects the above clinical findings: [] Treatment Provided: [] PHYSICIAN'S RESPONSE Based on your medical judgment of the clinical indicators outlined above please clarify the following: [] Practitioner response [] If unable to determine, please check the box, sign and date. Present On Admission (POA) Indicator: [] Present at the time of admission [] Not present at the time of admission [] Clinically Undetermined In responding to this query, please exercise your independent professional judgment. The fact that a question is asked does not imply that any particular answer is desired or expected. Thank you for your clarification on this documentation. If you have any questions please call. * Thank you, Sammi Pedroza RN ext. #[phone] MTDD
--- NOTE | 2017-06-05 12:00 | IP.NPCORE ---
Heart Failure Core Measure - Heart Failure Ejection Fraction: Less Than 40 % Left Ventricular Function to be assessed after discharge: Yes YADI Inhibitor Prescribed: Yes - Follow up Will be discharged to: Home Follow Up Date (must be within 7 days from discharge): 06/12/17 (Family clinic ) Follow Up Time: 09:00
[2017-06-05 12:10] VITALS: BP 130/81; TEMP 98.7
--- NOTE | 2017-06-05 12:23 | CP.PCM.PCO ---
Assessment and Plan - Assessment and Plan (Free Text) Assessment: Pt seen and examined Denies chest pain shortness of breath, n/v/d. Lungs clear no rhonchi, no rales Ct scan chest with no acute changes Echocardiogram reviewed with Dr Rodríguez YADI inhibitor started and pt to have repeat echo in 3 months and follow up with Recovery Analyst. Pt cleared for discharge from Dr Olvera with new rx of Keppra 750mg po BID JAJA Mitchell to meet with patient and provide with a list of shelters in the area. RX provided All the above discussed with Dr Trammell. Agree with discharge.
[2017-06-05] MEDS: Azithromycin 500 MG in Sodium Chloride 0.9% 250 ML IVPB SCH (12:48)
--- NOTE | 2017-06-05 14:04 | CP.PCM.PN ---
Subjective - Date & Time of Evaluation Date of Evaluation: 06/05/17 - Subjective Subjective: F/U Seizure /CP. No A/D, no SOB, no CP. Objective - Vital Signs/Intake and Output Vital Signs (last 24 hours): Temp Pulse Resp BP Pulse Ox 98.7 F 69 18 130/81 97 06/05/17 12:00 06/05/17 12:00 06/05/17 12:00 06/05/17 12:00 06/05/17 12:00 - Medications Medications: Current Medications Chlordiazepoxide (Librium) 10 mg PO QID PRN PRN Reason: WITHDRAWAL SYMPTOMS Last Admin: 06/05/17 09:13 Dose: 10 mg Citalopram Hydrobromide (Celexa) 20 mg PO DAILY [facility] Last Admin: 06/05/17 09:13 Dose: 20 mg Enalapril Maleate (Vasotec) 2.5 mg PO DAILY [facility] Last Admin: 06/05/17 13:34 Dose: 2.5 mg Ceftriaxone Sodium (Rocephin Iv 1 Gm Duplex) 50 mls @ 100 mls/hr IVPB DAILY BAL PRN Reason: Protocol Last Admin: 06/05/17 09:14 Dose: 100 mls/hr Azithromycin 500 mg/ Sodium (Chloride) 250 mls @ 250 mls/hr IVPB DAILY BAL PRN Reason: Protocol Last Admin: 06/05/17 12:48 Dose: Not Given Levetiracetam (Keppra) 750 mg PO BID [facility] Last Admin: 06/05/17 09:13 Dose: 750 mg Lorazepam (Ativan) 1 mg IVP ONCE PRN PRN Reason: Agitation Last Admin: 06/03/17 01:19 Dose: 1 mg - Labs Labs: 06/03/17 06:30 06/03/17 06:30 - Constitutional Appears: No Acute Distress - Head Exam Head Exam: NORMAL INSPECTION - Eye Exam Eye Exam: PERRL - ENT Exam ENT Exam: Normal Exam - Neck Exam Neck Exam: Normal Inspection - Respiratory Exam Respiratory Exam: NORMAL BREATHING PATTERN - Cardiovascular Exam Cardiovascular Exam: REGULAR RHYTHM Additional comments: L chest wall tenderness. - GI/Abdominal Exam GI & Abdominal Exam: Soft, Normal Bowel Sounds - Extremities Exam Extremities Exam: Tenderness (L shoulder) - Back Exam Back Exam: NORMAL INSPECTION - Neurological Exam Neurological Exam: Alert, Oriented x3. absent: Motor Sensory Deficit - Psychiatric Exam Additional comments: Calm. - Skin Skin Exam: Warm Assessment and Plan (1) Seizure disorder Status: Acute (2) Alcohol abuse Status: Chronic (3) Chest pain, mid sternal Status: Acute - Assessment and Plan (Free Text) Plan: CT Chest: No PNA, Echo showed: Moderate to severe LV systolic dysfunction, LAD wall motion abnormality, LVEF 35-40%, cardiology stated in Vasotec 2.5 mg. Chest pain Atypical. Pt improved and stable to be discharged, see instruction medication sheet, f/u with PMD in a week and Cardiology.
[2017-06-06 14:34] VITALS: PULSE 102; O2SAT 99
== END 2017-06-05 14:14 | disposition home or self-care (01) | DRG 889 ==
LOC: H.ER 13:53 → OBSVTOIN 17:39 → INTOOBSV 17:39 → H.ERHOLD 17:39 → H.TEL 20:13
PROVIDERS: ADMIT Internal Medicine Pulmonary Disease; ATTEND Internal Medicine Pulmonary Disease
DX: G40.909 Epilepsy, unspecified, not intractable, without status epilepticus (principal); F10.239 Alcohol dependence with withdrawal, unspecified; F20.9 Schizophrenia, unspecified; K75.9 Inflammatory liver disease, unspecified; I48.91 Unspecified atrial fibrillation; I10 Essential (primary) hypertension; Z91.14 Patient's other noncompliance with medication regimen; R07.89 Other chest pain

== ENCOUNTER 2018-05-05 01:22 | Emergency (ER) | payer MEDICAID ==
[2018-05-05 01:23] VITALS: BMI 25.8
[2018-05-05 01:39] VITALS: TEMP 98.6
--- NOTE | 2018-05-05 02:07 | ED PDOC ---
HPI: Seizure Time Seen by Provider: 05/05/18 01:27 Chief Complaint (Nursing): Seizure Chief Complaint (Provider): Seizure History Per: Patient History/Exam Limitations: no limitations Recent Seizure Activity Began: Unknown Number Of Seizures: One Length Of Seizures (Duration): Unknown Quality Of Seizure: Generalized Additional Complaint(s): 57yo male, history of seizure disorder, alcohol withdrawal seizure, comes to ER for evaluation after he had an episode of witnessed seizure. [facility] and was noted to have a seizure episode; he denies any tongue bite, bowel or bladder incontinence. Patient denies any headache, weakness, or numbness. No additional complaints. Past Medical History Reviewed: Historical Data, Nursing Documentation, Vital Signs Vital Signs: Last Vital Signs Temp 98.6 F 05/05/18 01:30 Pulse 105 H 05/05/18 01:30 Resp 18 05/05/18 01:30 BP 156/81 H 05/05/18 01:30 Pulse Ox 95 05/05/18 01:30 - Medical History PMH: Atrial Fibrillation, Bipolar Disorder, Hepatitis, HTN, Pancreatitis, Schizophrenia, Seizures - Family History Family History: States: No Known Family Hx - Living Arrangements Living Arrangements: Other ([facility]eless jail) - Social History Alcohol: > 2 Drinks/Day - Immunization History Hx Tetanus Toxoid Vaccination: No Hx Influenza Vaccination: No Hx Pneumococcal Vaccination: No - Home Medications Home Medications: Ambulatory Orders Medication Instructions Recorded RX: Aspirin [Aspirin Chewable] 81 mg PO DAILY #14 chew 04/12/18 RX: Folic Acid 1 mg PO DAILY #14 tab 04/12/18 RX: Losartan [Cozaar] 25 mg PO DAILY #14 tab 04/12/18 RX: Metoprolol Succinate XL 12.5 mg PO DAILY #14 tab 04/12/18 [Toprol XL] RX: Multivitamins [Hexavitamin] 1 tab PO DAILY #14 tab 04/12/18 RX: Thiamine [Vitamin B1 Tab] 100 mg PO DAILY #14 tab 04/12/18 RX: levETIRAcetam [Keppra] 750 mg PO BID #30 tab 04/12/18 Phenytoin, Extended [Dilantin 100 mg PO TID #90 cer 04/23/18 [facility]] - Allergies Allergies/Adverse Reactions: Allergies Allergy/AdvReac Type Severity Reaction Status Date / Time No Known Allergies Allergy Verified 05/05/18 17:41 Review of Systems ROS Statement: Except As Marked, All Systems Reviewed And Found Negative Genitourinary Male: Negative for: Incontinence Neurological: Positive for: Seizures. Negative for: Weakness, Numbness, Headache Physical Exam - Reviewed Nursing Documentation Reviewed: Yes Vital Signs Reviewed: Yes - Physical Exam Appears: Positive for: No Acute Distress Head Exam: Positive for: ATRAUMATIC, NORMAL INSPECTION, NORMOCEPHALIC Skin: Positive for: Normal Color Eye Exam: Positive for: Normal appearance Neck: Positive for: Supple Cardiovascular/Chest: Positive for: Regular Rate, Rhythm Respiratory: Positive for: Normal Breath Sounds Gastrointestinal/Abdominal: Positive for: Normal Exam, Soft Back: Positive for: Normal Inspection Extremity: Positive for: Normal ROM Neurologic/Psych: Positive for: Alert, Oriented. Negative for: Motor/Sensory Deficits - ECG O2 Sat by Pulse Oximetry: 95 (RA) Pulse Ox Interpretation: Normal Medical Decision Making Medical Decision Making: Impression: 57yo male, with a witnessed seizure episode Plan: * Labs * Urinalysis * UDS Phentoin level subtherapeutic; IV Cerebyx ordered Scribe Attestation: Documented by Yesica Melvin, acting as a scribe for Sandoval Rob MD. Provider Scribe Attestation: All medical record entries made by the Scribe were at my direction and personally dictated by me. I have reviewed the chart and agree that the record accurately reflects my personal performance of the history, physical exam, medical decision making, and the department course for this patient. I have also personally directed, reviewed, and agree with the discharge instructions and disposition. Disposition - Clinical Impression Clinical Impression: Epileptic seizures - Disposition Disposition: Routine/Home Disposition Time: 06:00 Condition: STABLE Instructions: Epilepsy in Adults Forms: [employer] (Rwandan)
[2018-05-05 03:54] LABS: URINE BILIRUBIN NEGATIVE (NEGATIVE); URINE BLOOD NEGATIVE (NEGATIVE); URINE CLARITY CLEAR (Clear); URINE COLOR STRAW (YELLOW); URINE GLUCOSE (UA) NEG (Normal); URINE LEUKOCYTE ESTERASE NEG Leu/uL (Negative); URINE PROTEIN NEGATIVE (NEGATIVE); URINE UROBILINOGEN 0.2-1.0 mg/dL (0.2-1.0)
[2018-05-05 04:24] LABS: BARBITURATES, UR NEGATIVE (NEGATIVE); BENZODIAZEPINES, UR POSITIVE (NEGATIVE); OPIATES, UR NEGATIVE (NEGATIVE); PHENCYCLIDINE, UR NEGATIVE (NEGATIVE)
[2018-05-05 06:04] VITALS: BP 147/88; PULSE 89; RESP 20
[2018-05-05 19:33] VITALS: O2SAT 95
== END 2018-05-05 06:38 | disposition home or self-care (01) ==
LOC: H.ER 01:22
DX: G40.909 Epilepsy, unspecified, not intractable, without status epilepticus (principal); I10 Essential (primary) hypertension; I48.91 Unspecified atrial fibrillation; F20.9 Schizophrenia, unspecified; F31.9 Bipolar disorder, unspecified
CPT/HCPCS: 80185; 80324; 80345; 80346; 80349; 80353; 80358; 80361; 81003; 82948; 83992; 96365; 99285; Q2009

== ENCOUNTER 2018-05-16 05:28 | Emergency (ER) | payer MEDICAID ==
[2018-05-16 05:28] VITALS: BMI 25.8
[2018-05-16 05:37] VITALS: TEMP 98.9; O2SAT 98
--- NOTE | 2018-05-16 06:40 | ED PDOC ---
HPI: Seizure Time Seen by Provider: 05/16/18 05:35 Chief Complaint (Nursing): Seizure Chief Complaint (Provider): Seizure History Per: EMS History/Exam Limitations: other (post-ictal state) Recent Seizure Activity Began: Just Before Arrival Quality Of Seizure: Generalized Additional Complaint(s): 57 year old homeless male presents to the ED via EMS s/p having a witnessed seizure at the [place]. Upon arrival, patient had another witnessed generalized tonic-clonic seizure. Patient is well known to this provider for frequent visits and not taking his seizure medication. Due to post-ictal state, ROS is unobtainable and other pmhx is pulled from previous charting. PMD: none provided Past Medical History Reviewed: Historical Data, Nursing Documentation, Vital Signs Vital Signs: Last Vital Signs Temp 98.9 F 05/16/18 05:34 Pulse 63 05/16/18 05:34 Resp 17 05/16/18 05:34 BP 110/92 H 05/16/18 05:34 Pulse Ox 98 05/16/18 05:34 - Medical History PMH: Atrial Fibrillation, Bipolar Disorder, Hepatitis, HTN, Pancreatitis, Schizophrenia, Seizures Denies: Chronic Kidney Disease - Surgical History Surgical History: No Surg Hx - Family History Family History: States: Unknown Family Hx - Living Arrangements Living Arrangements: Other ([facility]) - Social History Current smoker - smoking cessation education provided: Yes - Immunization History Hx Tetanus Toxoid Vaccination: No Hx Influenza Vaccination: No Hx Pneumococcal Vaccination: No - Home Medications Home Medications: Ambulatory Orders Medication Instructions Recorded RX: Aspirin [Aspirin Chewable] 81 mg PO DAILY #14 chew 04/12/18 RX: Folic Acid 1 mg PO DAILY #14 tab 04/12/18 RX: Losartan [Cozaar] 25 mg PO DAILY #14 tab 04/12/18 RX: Metoprolol Succinate XL 12.5 mg PO DAILY #14 tab 04/12/18 [Toprol XL] RX: Multivitamins [Hexavitamin] 1 tab PO DAILY #14 tab 04/12/18 RX: Thiamine [Vitamin B1 Tab] 100 mg PO DAILY #14 tab 04/12/18 RX: Phenytoin, Extended [Dilantin] 100 mg PO TID #90 cer 04/23/18 RX: Levetiracetam [Keppra] 750 mg PO BID 7 Days #14 tablet 05/05/18 - Allergies Allergies/Adverse Reactions: Allergies Allergy/AdvReac Type Severity Reaction Status Date / Time No Known Allergies Allergy Verified 05/18/18 12:48 Review of Systems Review Of Systems: ROS cannot be obtained secondary to pt's inabilty to answer questions. Physical Exam - Reviewed Nursing Documentation Reviewed: Yes Vital Signs Reviewed: Yes - Physical Exam Appears: Positive for: No Acute Distress (post-ictal state) Head Exam: Positive for: ATRAUMATIC, NORMOCEPHALIC Skin: Positive for: Normal Color Eye Exam: Positive for: Normal appearance ENT: Positive for: Normal ENT Inspection Neck: Positive for: Normal, Painless ROM Cardiovascular/Chest: Positive for: Regular Rate, Rhythm Respiratory: Positive for: Normal Breath Sounds Gastrointestinal/Abdominal: Positive for: Normal Exam, Soft. Negative for: Tenderness Back: Positive for: Normal Inspection Extremity: Positive for: Normal ROM Neurologic/Psych: Positive for: Other (post-ictal state). Negative for: Alert, Oriented - Laboratory Results Result Diagrams: 05/16/18 08:17 05/16/18 08:17 - ECG O2 Sat by Pulse Oximetry: 98 (RA) Pulse Ox Interpretation: Normal Medical Decision Making Medical Decision Making: Time: 545 Initial Impression: 57 year old male with seizures in setting of known seizure disorder Initial Plan: --EKG --Alcohol serum --CMP --Dilantin chemistry --Drug screen --Lact acid chemistry --Magnesium chemistry --CBC with differential --Accucheck --Ativan 2mg IM 0700 Patient care endorsed from this provider to Dr. Zambrano pending workup and reevaluation. Scribe Attestation: Documented by Janette Blake, acting as a scribe for Sandoval Rob MD. Provider Scribe Attestation: All medical record entries made by the Scribe were at my direction and personally dictated by me. I have reviewed the chart and agree that the record accurately reflects my personal performance of the history, physical exam, medical decision making, and the department course for this patient. I have also personally directed, reviewed, and agree with the discharge instructions and disposition. Disposition - Clinical Impression Clinical Impression: Alcohol related seizure, Alcohol dependence - Patient ED Disposition Is Patient to be Admitted: Transfer of Care - Disposition Disposition: Transfer of Care Disposition Time: 07:00 Condition: FAIR Additional Instructions: Increase water intake for the next day. Seek professional help for alcohol abuse. Take medications including Dilatin as prescribed by your primary doctor. Instructions: Seizures, Adult (DC), Alcohol Withdrawal (DC), Alcohol Abuse and Alcoholism (DC) Forms: [employer] (Spanish) Print Language: [place] Patient Signed Over To: Kristi Zambrano
[2018-05-16 06:43] VITALS: RESP 20
[2018-05-16 07:26] VITALS: BP 128/75; PULSE 124
--- NOTE | 2018-05-16 07:45 | ED PDOC ---
- Laboratory Results Result Diagrams: 05/16/18 08:17 05/16/18 08:17 - ECG O2 Sat by Pulse Oximetry: 98 (RA) Pulse Ox Interpretation: Normal Medical Decision Making Medical Decision Makin:00 Care endorsed to this provider by Dr. Rob Patient presented from residential after a seizure Given IM Ativan Pending Dilantin levels Will give Dilantin PO if levels are subtherapeutic. 12:37 Patient is comfortable; no signs of withdrawal or seizure. Earlier seizure was likely brought on by alcohol withdrawal. Labs reviewed and are consistent with seizure. Lactic acid elevated. Tolerating PO and fluids at this time. He refused every attempt at an IV line which is no longer necessary because patient is awake, alert, talking and oriented. Given Librium to prevent further withdrawal symptoms. Discharged home and advised to seek treatment for alcohol abuse. Scribe Attestation: Documented by Maribel Landaverde acting as a scribe for Kristi Zambrano MD Provider Scribe Attestation: All medical record entries made by the Scribe were at my direction and personally dictated by me. I have reviewed the chart and agree that the record accurately reflects my personal performance of the history, physical exam, medical decision making, and the department course for this patient. I have also personally directed, reviewed, and agree with the discharge instructions and disposition. Disposition - Clinical Impression Clinical Impression: Alcohol related seizure, Alcohol dependence - POA Present On Arrival: None - Disposition Disposition: Routine/Home Disposition Time: 12:45 Condition: IMPROVED Additional Instructions: Increase water intake for the next day. Seek professional help for alcohol abuse. Take medications including Dilatin as prescribed by your primary doctor. Instructions: Seizures, Adult (DC), Alcohol Withdrawal (DC), Alcohol Abuse and Alcoholism (DC) Forms: [employer] (Indonesian) Print Language: YORUBA
[2018-05-16 08:27] LABS: BASO # 0.1 K/uL (0.0-0.2); BASO % 0.4 % (0.0-2.0); EOS # 0.1 K/uL (0.0-0.7); EOS % 0.6 % (0.0-4.0); LYMPH # 0.5 K/uL (1.0-4.3); LYMPH % 4.6 % (20.0-40.0); MEAN CELL VOLUME 86.5 fl (80.0-94.0); MEAN CORPUSCULAR HEMOGLOBIN 26.7 pg (27.0-31.0); MEAN CORPUSCULAR HGB CONC 30.9 g/dL (33.0-37.0); MEAN PLATELET VOLUME 7.1 fl (7.2-11.7); MONO # 0.8 K/uL (0.0-0.8); MONO % 7.1 % (0.0-10.0); NEUT # 9.9 K/uL (1.8-7.0); NEUT % 87.3 % (50.0-75.0); NRBC % 0.1 % (0.0-0.0); PLATELET COUNT 441 K/uL (130-400); RBC 4.12 Mil/uL (4.40-5.90); WHITE BLOOD COUNT 11.4 K/uL (4.8-10.8)
[2018-05-16 08:32] LABS: ALB/GLOB RATIO 1.1 (1.0-2.1); ALBUMIN 4.2 g/dL (3.5-5.0); ALT/SGPT 23 U/L (21-72); AST/SGOT 32 U/L (17-59); BLOOD UREA NITROGEN 13 mg/dl (9-20); CALCIUM 9.5 mg/dL (8.4-10.2); GFR NON-AFRICAN AMERICAN > 60
[2018-05-16 09:27] LABS: ANISOCYTOSIS MODERATE; EOSINOPHIL 1 % (0-7); HYPOCHROMIC SLIGHT; LYMPHOCYTE 13 % (20-50); MONOCYTE 9 % (0-10); NEUTROPHIL 77 % (42-75); PLATELET CLUMPS PRESENT; PLATELET ESTIMATE INCREASED (NORMAL); TOTAL CELLS COUNTED 100
--- NOTE | 2018-05-16 14:51 | CARD ---
APPROVED REPORT Date of service: 05/16/2018 EKG Measurement Heart [id number] <Conclusion> Sinus tachycardia Otherwise normal ECG
== END 2018-05-16 14:24 | disposition home or self-care (01) ==
LOC: H.ER 05:28
DX: F10.231 Alcohol dependence with withdrawal delirium (principal); F10.20 Alcohol dependence, uncomplicated; Z59.0 Homelessness; I10 Essential (primary) hypertension; G40.409 Other generalized epilepsy and epileptic syndromes, not intractable, without status epilepticus
CPT/HCPCS: 80053; 80185; 80320; 82948; 83605; 83735; 85025; 93005; 96372; 99285; J2060